=== PATIENT | male | born 1990 | race Caucasian/White ===

== ENCOUNTER → 2020-06-26 | Outpatient (CLI) | payer OTHER | LOC: MHCPAIN 09:42 | DX: M47.814 Spondylosis without myelopathy or radiculopathy, thoracic region (principal); M54.6 Pain in thoracic spine; G89.29 Other chronic pain | CPT/HCPCS: G0463 ==

== ENCOUNTER → 2020-07-10 | Outpatient (CLI) | payer OTHER | LOC: MHCPAIN 12:53 | DX: M79.18 Myalgia, other site (principal); M54.6 Pain in thoracic spine; M54.2 Cervicalgia | CPT/HCPCS: J1040 ==